=== PATIENT | male | born 1940 | race Caucasian/White ===

== ENCOUNTER 2020-08-31 14:22 | Emergency (ER) | payer MEDICARE, OTHER, SELFPAY ==
[2020-08-31 14:41] VITALS: BP 149/67; PULSE 85; RESP 12; TEMP 35.9; O2SAT 100; BMI 35.7
--- NOTE | 2020-08-31 15:16 | DI.RAD.S_ITS ---
PROCEDURE: XR HIP W PEL IF DONE RT 2V INDICATIONS: fall with right hip pain TECHNIQUE: AP pelvis with lateral view(s) of the right hip(s). COMPARISON: None. FINDINGS: Bones: No fractures or dislocations. Pelvic ring appears intact. No suspicious bony lesions. Right hip arthroplasty hardware is seen. No findings of hardware failure or hardware loosening are seen. There is moderate superior joint space narrowing seen of left hip, with associated remodeling changes with subchondral sclerosis and osteophyte formation. Age-appropriate lower lumbar spine degenerative changes are noted. Soft tissues: The visualized bowel gas pattern is normal. No suspicious soft tissue calcifications. Prostate seed implants can be seen. Metallic artifact is seen, which is believed to be exterior to the patient, which is attributed to metallic ends on sweatpants drawstring ties. IMPRESSION: No acute bony abnormality is seen. Intact appearing right hip arthroplasty hardware. Moderate left hip degenerative change. Dictated by: Danilo Kim M.D. on 08/31/2020 at 15:08 Approved by: Danilo Kim M.D. on 08/31/2020 at 15:11
--- NOTE | 2020-08-31 17:16 | ED_ITS ---
HPI - Back Pain/Injury General Chief Complaint: Back Pain/Injury Stated Complaint: GROIN INJURY Time Seen by Provider: 08/31/20 15:15 Source: patient Mode of arrival: Ambulatory Limitations: no limitations History of Present Illness HPI Narrative: Patient is a 80-year-old male not on anticoagulation here for evaluation of right hip/groin pain and also pain to his right shoulder and right ankle. He sustained these injuries last evening when he heard his fall. He went to go try to help her in he tripped over the screen that she tripped over and landed on top of her. He did not lose consciousness. Describes pain in his right hip and has had a hip replacement on that side. He has been able to ambulate since the event. His came to the emergency department to be evaluated so he thought that he should check in to be seen as well. Related Data Home Medications Medication Instructions Recorded Confirmed ASPIRIN (Aspir-Low) 81 mg PO QDAY #0 11/14/12 07/23/20 Ketoconazole #0 11/14/12 07/23/20 [CLOTRIMAZOLE] #0 11/14/12 07/23/20 hydrocortisone butyrate [Locoid] #0 11/14/12 07/23/20 DESOXIMETASONE (TOPICORT CREAM) 0.25 % TOPICAL #0 12/21/12 07/23/20 VITAMIN D (Vitamin D3) 1,000 unit PO QDAY #0 12/21/12 07/23/20 olopatadine [Pataday] #0 12/21/12 07/23/20 loperamide #0 06/29/17 07/23/20 tamsulosin [Flomax] 0.4 mg PO QDAY #0 06/29/17 07/23/20 metoprolol tartrate 25 mg tablet 25 mg PO BID #0 tab 11/15/18 07/23/20 doxycycline hyclate 50 mg capsule 50 mg PO BID cap 01/23/20 07/23/20 Previous Rx's Medication Instructions Recorded simvastatin 40 mg PO HS #90 11/29/12 bupropion HCl 150 mg 24 hr tablet, 150 mg PO QAM #90 tab 05/29/20 extended release Allergies Allergy/AdvReac Type Severity Reaction Status Date / Time azithromycin [AZITHROMYCIN] Allergy Mild HIVES AND Verified 07/23/20 08:24 RASH Penicillins [PENICILLINS] Allergy Mild thrus Verified 07/23/20 08:24 cortisone [CORTISONE] AdvReac Intermediate DECREASED Verified 07/23/20 08:24 IMMUNE SYSTEM AND THRUSH cefuroxime [CEFUROXIME] AdvReac Mild DIARRHEA Verified 07/23/20 08:24 clotrimazole [CLOTRIMAZOLE] AdvReac Mild HIVES AND Verified 07/23/20 08:24 RASH (FROM MYCELEX) Review of Systems Constitutional Constitutional: Denies fatigue, Denies fever(s), Denies headache(s) and Denies weakness ENT Ears, Nose, Mouth, and Throat: Denies vertigo, Denies dizziness, Denies headache(s) and Denies disequilibrium Cardiovascular Cardiovascular: Denies chest pain, Denies syncope and Denies dyspnea Respiratory Respiratory: Denies dyspnea Gastrointestinal Gastrointestinal: Denies abdominal pain, Denies nausea and Denies vomiting Genitourinary Genitourinary: Denies dysuria Genitourinary: Denies dysuria Musculoskeletal Comments: Right shoulder pain, right hip pain on right ankle pain Integumentary/Breasts Skin/Breast: Denies lesions and Denies rash Neurologic Neurologic: Denies behavioral changes, Denies vertigo, Denies dizziness, Denies syncope, Denies headache(s), Denies disequilibrium and Denies weakness Psychiatric Psychiatric: Denies behavioral changes Endocrine Endocrine: Denies fatigue Hematologic/Lymphatic On Anticoagulants: No Allergic/Immunologic Allergic/Immunologic: Denies urticaria Patient History Medical History Major depressive disorder, recurrent episode, moderate with atypical features Major depressive disorder, recurrent, in full remission Mixed hyperlipidemia (12/21/12) Unspecified essential hypertension (12/21/12) Social History Smoking Status: Former smoker Smoking Status: Former smoker alcohol intake frequency: 3 or more drinks per day Alcohol type: wine Substance Use Type: marijuana Exam Initial Vital Signs Initial Vital Signs: Vital Signs Temperature 96.6 F L 08/31/20 14:41 Pulse Rate 85 08/31/20 14:41 Respiratory Rate 12 08/31/20 14:41 Blood Pressure 149/67 H 08/31/20 14:41 Pulse Oximetry 100 08/31/20 14:41 Const General: cooperative, healthy appearing, comfortable and well developed Limitations: mental status not altered HENMT Head: normal to inspection and normocephalic Ears: hearing grossly normal bilaterally Resp Effort & Inspection: normal respiratory effort Auscultation: clear to auscultation bilaterally Cardio Rate: regular rate Rhythm: regular rhythm GI Inspection: non-distended Skin Lesions: no lesions Rashes: no rashes Neuro General: patient alert, patient awake and patient oriented x3 Cognition: normal cognition Speech: speech normal Gait: normal gait Extrem Other: Full range of motion of the right shoulder. Is able to ambulate on bilateral lower extremities. Psych Appearance: grossly normal and well kempt Course Orders Ordered: ED Orders 08/31/20 15:16 XR hip w pel if done RT 2V Stat Vital Signs Vital signs: Vital Signs - 8 hr 08/31/20 14:41 08/31/20 17:36 Temperature 96.6 F L Pulse Rate 85 77 Respiratory Rate 12 Blood Pressure 149/67 H 141/66 H Pulse Oximetry 100 MDM - Back Pain/Injury Imaging Data Extremity x-ray #1: Radiologist's Impression: [address] [id number] ReportSigned Patient: Kervin Herndon EMR#: [id number]: [id number]:[id number]/Sex: 80 / MDate of Service: 08/31/20Loc: EDAccession Number: [id number] Procedure: XR hip w pel if done RT 2V Ordering Provider: Mitch Lau D.O. PROCEDURE: XR HIP W PEL IF DONE RT 2V INDICATIONS: fall with right hip pain TECHNIQUE: AP pelvis with lateral view(s) of the right hip(s). COMPARISON: None. FINDINGS: Bones: No fractures or dislocations. Pelvic ring appears intact. No suspicious bony lesions. Right hip arthroplasty hardware is seen. No findings of hardware failure or hardware loosening are seen. There is moderate superior joint space narrowing seen of left hip, with associated remodeling changes with subchondral sclerosis and osteophyte formation. Age-appropriate lower lumbar spine degenerative changes are noted. Soft tissues: The visualized bowel gas pattern is normal. No suspicious soft tissue calcifications. Prostate seed implants can be seen. Metallic artifact is seen, which is believed to be exterior to the patient, which is attributed to metallic ends on sweatpants drawstring ties. IMPRESSION: No acute bony abnormality is seen. Intact appearing right hip arthroplasty hardware. Moderate left hip degenerative change. Dictated by: Danilo Kim M.D. on 08/31/2020 at 15:08 Approved by: Danilo Kim M.D. on 08/31/2020 at 15:11 [facility] Narrative Medical decision making narrative: X-rays of the right hip were unremarkable. He has been able to ambulate and I have low suspicion that he has fractured his right ankle. He also has full range of motion of his right shoulder. This was a mechanical fall. I feel we can hold on further workup for now. Patient was given return precautions and follow-up instructions. He expressed understanding and agreement. Discharge Plan Departure Patient Disposition: Home Clinical Impression: Contusion of hip, right Instructions: DI for Contusion Activity Restrictions/Additional Instructions: You have no restrictions on your activities. Continue all of your medications as directed. Return to the emergency department for any new or worsening sy mptoms Prescriptions: No Action doxycycline hyclate 50 mg capsule 50 mg PO BID RF: 0 ASPIRIN (Aspir-Low) 81 mg PO QDAY Qty: 0 RF: 0 hydrocortisone butyrate [Locoid] 0.1 % cream Qty: 0 RF: 0 Ketoconazole Qty: 0 RF: 0 [CLOTRIMAZOLE] Qty: 0 RF: 0 simvastatin 40 MG tablet 40 mg PO HS Qty: 90 RF: 1 DESOXIMETASONE (TOPICORT CREAM) 0.25 % Topical Qty: 0 RF: 0 olopatadine [Pataday] 2.5 ML drops Qty: 0 RF: 0 VITAMIN D (Vitamin D3) 1,000 unit PO QDAY Qty: 0 RF: 0 tamsulosin [Flomax] 0.4 MG capsule,extended release 24hr 0.4 mg PO QDAY Qty: 0 RF: 0 loperamide 2 MG capsule Qty: 0 RF: 0 metoprolol tartrate 25 mg tablet 25 mg PO BID Qty: 0 RF: 0 bupropion HCl [Wellbutrin XL] 150 mg tablet extended release 24 hr 150 mg PO QAM Qty: 90 RF: 1 Referrals: Irma Christy MD [Primary Care Provider] -
[2020-08-31 17:36] VITALS: BP 141/66; PULSE 77
== END 2020-08-31 17:37 | disposition home or self-care (01) ==
PROVIDERS: Emergency Provider Emergency Medicine; Family Provider Internal Medicine Geriatric Medicine; PCP Family Medicine
DX: S70.01XA Contusion of right hip, initial encounter (principal); M25.511 Pain in right shoulder; M25.571 Pain in right ankle and joints of right foot; W19.XXXA Unspecified fall, initial encounter
CPT/HCPCS: 73502; 99281; 99283